=== PATIENT | male | born 1980 | race Caucasian/White ===

== ENCOUNTER 2021-08-15 00:43 | Emergency (ER) | payer OTHER, SELFPAY ==
[2021-08-15 00:48] VITALS: BP 190/109; PULSE 95; RESP 16; TEMP 37.1; O2SAT 99; BMI 27.3
--- NOTE | 2021-08-15 00:49 | ED_ITS ---
HPI - General Adult General Chief complaint: Wound/Laceration Stated complaint: left hand/finger cut badly Time Seen by Provider: 08/15/21 00:47 Source: patient Mode of arrival: Ambulatory Limitations: no limitations History of Present Illness HPI narrative: Patient is a 41-year-old male who is here for evaluation of a cut to his left hand and left thumb. It occurred at home when he was using a knife to cut some chicken while making soup. He thinks that his last tetanus shot was within the past couple years but he is not 100% sure. No other injuries from the event. He did cover with a bandage and came to the emergency department for evaluation. Related Data Home Medications Medication Instructions Recorded Confirmed ibuprofen 200 mg tablet 200 mg PO PRN #0 tab 04/01/16 ranitidine HCl 150 mg tablet 150 mg PO QDAY #0 tab 04/01/16 Allergies Allergy/AdvReac Type Severity Reaction Status Date / Time No Known Drug Allergies Allergy Verified 08/15/21 00:50 Review of Systems Constitutional Constitutional: Reports as per HPI Musculoskeletal Comments: Pain over the areas of the cut otherwise no other symptoms Integumentary/Breasts Comments: Cut to the back of the left hand and left thumb Hematologic/Lymphatic On Anticoagulants: No Patient History Medical History Healthy adult Social History Smoking Status: Never smoker Exam Initial Vital Signs Initial Vital Signs: Vital Signs Temperature 98.7 F 08/15/21 00:48 Pulse Rate 95 H 08/15/21 00:48 Respiratory Rate 16 08/15/21 00:48 Blood Pressure 190/109 H 08/15/21 00:48 Pulse Oximetry 99 08/15/21 00:48 Cardio Pulses: radial pulses present on the left Skin Other: Patient with a total 1 cm cut on the dorsum of the left thumb between the MCP joint and the IP joint. There is some oozing from the area. There is a 3 cm ?you ?shaped laceration on the dorsum of the hand in between the thumb and the index finger radial aspect. Oozing from this area as well. Neuro Sensory Exam: no sensory deficits noted Extrem Other: Full range of motion of left index finger and left thumb Procedures Laceration Repair Laceration 1: Site: other (Thumb) Side (If applicable): left Size (cm): 1 Description: other (Flap) Depth: simple, single layer Local Anesthetic: lidocaine 1% and with bicarb Amount of anesthesia used (mL): 3 Pre-repair: wound explored, irrigated extensively and deep structures intact Skin layer closed with: nylon Size (cm): 4-0 Number of sutures: 3 Technique: simple, interrupted Laceration 2: Site: hand Side (If applicable): left Size (cm): 3 Description: other (Flap, U shaped) Depth: simple, single layer Local Anesthetic: lidocaine 1% and with bicarb Amount of anesthesia used (mL): 4 Pre-repair: wound explored and deep structures intact Skin layer closed with: nylon Size (cm): 4-0 Number of sutures: 9 Technique: simple, interrupted Course Orders Ordered: Discontinued Medications Bacitracin (Bacitracin Oint 0.9 Gm Pckt) 1 applic TOP NOW ONE Stop: 08/15/21 00:49 Last Admin: 08/15/21 00:52 Dose: 1 applic Documented by: TESSA Lidocaine/Sodium Bicarbonate (Lido 1%/Sod Bicarb 8.4% (10ml) 10 Ml Syringe) 10 ml INJ NOW ONE Stop: 08/15/21 00:49 Last Admin: 08/15/21 00:52 Dose: 10 ml Documented by: TESSA Vital Signs Vital signs: Vital Signs - 8 hr 08/15/21 00:48 Temperature 98.7 F Pulse Rate 95 H Respiratory Rate 16 Blood Pressure 190/109 H Pulse Oximetry 99 Medical Decision Making [facility] Narrative Medical decision making narrative: Patient would like his tetanus updated. He is neurovascularly intact. The laceration on the dorsum of the left thumb was a flap. I did inform him that the skin over top the area may not survive this injury due to potential compromise of blood supply. The U shaped laceration on the dorsum left hand was closed as described above. No indication for antibiotics. He was given care instructions and return precautions. He expressed understanding and agreement. Discharge Plan Departure Patient Disposition: Home Clinical Impression: Laceration Instructions: DI for Laceration Repair Activity Restrictions/Additional Instructions: The stitches do need to be removed in 7-10 days. Until then you can keep the area covered with antibiotic ointment and bandages. After 24 hours you can wash your hands like normal. You can use soap and water like normal. Do not soak yo ur hand in anything until the wound is healed. Your tetanus was updated today. Contact your primary doctor for a follow-up. Return to the emergency department for any new or worsening symptoms Prescriptions: No Action ranitidine HCl 150 MG tablet 150 mg PO QDAY Qty: 0 0RF ibuprofen 200 MG tablet 200 mg PO PRNQty: 0 0RF
[2021-08-15] MEDS: LIDO 1%/SOD BICARB 8.4% (10ML) 10 ML SYRINGE INJ (00:52)
[2021-08-15] MEDS: BACITRACIN OINT 0.9 GM PCKT 1 APPLIC TOP (00:52)
--- NOTE | 2021-08-15 01:10 | PC.NURSE ---
Laceration on base of second digit approx 3cm in a V shape. Laceration to thumb approx 1cm well approximated. Patient tolerated suture closure well
--- NOTE | 2021-08-15 01:24 | PC.NURSE ---
9 stitches in left 2nd digit, 3 in thumb
[2021-08-15] MEDS: TET,DIPH,PERTUSS(ACELL),VAC/PF 0.5 ML SYRINGE IM (01:29)
[2021-08-15 01:34] VITALS: BP 170/102; PULSE 88; RESP 12; O2SAT 99
== END 2021-08-15 01:35 | disposition home or self-care (01) ==
PROVIDERS: Emergency Provider Emergency Medicine
DX: S61.012A Laceration without foreign body of left thumb without damage to nail, initial encounter (principal); S61.412A Laceration without foreign body of left hand, initial encounter; W26.0XXA Contact with knife, initial encounter; Y93.G3 Activity, cooking and baking; Z23 Encounter for immunization
CPT/HCPCS: 12042; 90471; 99283; 90715

== ENCOUNTER → 2024-08-16 13:07 | Outpatient (CLI) | payer OTHER, SELFPAY | PROVIDERS: Visit Provider Physician Assistant | DX: J02.9 Acute pharyngitis, unspecified (principal) | CPT/HCPCS: 87070 ==